=== PATIENT | male | born 1955 | race Caucasian/White ===

== ENCOUNTER 2016-11-22 13:03 | Emergency (ER) | payer SELFPAY ==
[~2016-11-22] VITALS: Ht 177.8 cm; Wt 68.0 kg
[~2016-11-22 13:03] MED LIST: ADULT ASPIRIN81 MG PO; ADULT LOW DOSE81 M1 PO; AMIODARONE HCL200 M1 PO; ATENOLOL25 M1 PO; CEFTIN250 M1 PO; DOXYCYCLINE HY100 M3 PO; ELIQUIS PO; ELIQUIS5 M1 PO; FLECAINIDE ACE100 M1 PO; FLECAINIDE ACET50 MG PO; HYDROCODONE/APA1 TA; NICOTINE PATCH1 EAC2 TD; NO MEDS; PREDNISONE20 M1 PO; PRILOSEC OTC20 MG PO; PROAIR HFA8.5 GM IH; TENORMIN25 M1 PO; VIBRAMYCIN100 M1 PO
== END 2016-11-22 16:10 ==
LOC: EDMED 13:03
DX: D22.5 Melanocytic nevi of trunk (principal); I48.91 Unspecified atrial fibrillation; F17.200 Nicotine dependence, unspecified, uncomplicated; Z90.89 Acquired absence of other organs; Z79.899 Other long term (current) drug therapy